=== PATIENT | male | born 1990 | race Caucasian/White ===

== ENCOUNTER 2022-06-08 14:42 | Emergency (ER) | payer OTHER ==
[~2022-06-08] VITALS: Ht 170.2 cm; Wt 93.4 kg
[2022-06-08 14:51] VITALS: BP 155/89
[2022-06-08] MEDS ORDERED: ACETAMINOPHEN ES 500 MG TABLET PO ONE (15:00)
--- NOTE | 2022-06-08 15:00 | NUR ---
[id number] FOR COVID TEST, STS THAT HE WAS EXPOSED TO COVID IN A AND HAS BEEN HAVING HEADACHE AND FEVER LAST FEW DAYS, AFEBRILE UPON ARRIVAL. THE PATIENT IS IN ROOM AIR AND DENIES SOB. RESPIRATION REGULAR AND UNLABORED. WILL CONTINUE TO MONITOR THE PATIENT.
--- NOTE | 2022-06-08 15:22 | NUR ---
COVID ANTIGEN SWAB DONE AND SENT TO THE LAB
--- NOTE | 2022-06-08 17:35 | NUR ---
Patient discharged to home in stable condition. Written and verbal after care instructions given. Patient verbalizes understanding of instruction.
== END 2022-06-08 17:35 ==
LOC: EDSEX 14:48 → ER 14:48
DX: Z02.89 Encounter for other administrative examinations (principal); Z20.822 Contact with and (suspected) exposure to COVID-19; R03.0 Elevated blood-pressure reading, without diagnosis of hypertension
CPT/HCPCS: 99283; 87426; C9803